=== PATIENT | female | born 1995 | race Caucasian/White ===

== ENCOUNTER 2022-12-28 04:57 | Emergency (ER) | payer SELFPAY ==
[2022-12-28 05:03] VITALS: BP 137/84; PULSE 77; RESP 16; TEMP 37.1; O2SAT 99; BMI 27.2
--- NOTE | 2022-12-28 05:15 | CTR_ITS ---
PROCEDURE INFORMATION: Exam: CT Abdomen And Pelvis With Contrast Exam date and time: 12/28/2022 6:02 AM Age: 27 years old Clinical indication: Abdominal pain; Acute; Additional info: Abd pain hematuria TECHNIQUE: Imaging protocol: Computed tomography of the abdomen and pelvis with contrast. Radiation optimization: All CT scans at this facility use at least one of these dose optimization techniques: automated exposure control; mA and/or kV adjustment per patient size (includes targeted exams where dose is matched to clinical indication); or iterative reconstruction. Contrast material: OMNI 350; Contrast volume: 100 ml; Contrast route: INTRAVENOUS (IV); REPORTING DATA: Count of CT and Cardiac NM exams in prior 12 months: This patient has received 0 known CTs and 0 known cardiac nuclear medicine studies in the 12 months prior to the current study. COMPARISON: No relevant prior studies available. RADIATION DOSE METRICS: Total DLP (mGy-cm): 674.57 FINDINGS: Lungs: The lung bases are clear. Liver: Unremarkable. Gallbladder and bile ducts: No definite gallbladder abnormality by CT. No biliary tree dilation. Pancreas: Unremarkable. Spleen: Unremarkable. Adrenal glands: Unremarkable. Kidneys and ureters: 4 mm left intrarenal calculus. No hydronephrosis of either kidney. No visible ureteral calculus. No significant perinephric fluid or obvious inhomogeneous renal enhancement. Lack of the above findings on CT does not entirely exclude the diagnosis of acute pyelonephritis. Please correlate with clinical and laboratory evaluation. Stomach and bowel: No significant bowel distention. There are no CT findings to strongly suggest diverticulitis. Appendix: The appendix is visualized and appears normal. Intraperitoneal space: No free intraperitoneal air, or generalized ascites. Vasculature: No evidence for abdominal aortic aneurysm. Lymph nodes: No retroperitoneal adenopathy. Urinary bladder: No visible calculus in the urinary bladder. Possibly some mild diffuse urinary bladder wall thickening. While nonspecific, this could indicate evidence for cystitis. Please correlate clinically. Reproductive: Trace amount of cul-de-sac fluid. No definite abnormal ovarian/adnexal cyst or mass by CT. Bones/joints: No significant acute finding. Soft tissues: Very small umbilical hernia, containing only fat. CT/CT abdomen pelvis w con* [id number] IMPRESSION: 1. 4 mm left intrarenal calculus. No hydronephrosis or visible ureteral calculus. 2. No perinephric fluid, see above discussion. 3. Possible mild urinary bladder wall thickening, see above. 4. Normal appendix. 5. No free air or significant bowel distention. 6. Trace amount of cul-de-sac fluid. No definite abnormal ovarian/adnexal cyst or mass by CT. 7. Other findings discussed above.
--- NOTE | 2022-12-28 05:16 | ED_ITS ---
Documented by User: Ernesto Joshua MD 12/28/22 05:19 HPI - Abdominal Pain General: Chief Complaint: Abdominal Pain Stated Complaint: adb pain Time Seen by Provider: 12/28/22 05:00 Source: patient Mode of arrival: ambulatory Limitations: no limitations History of Present Illness: 27-year-old female states that she got this morning went to the bathroom started having severe lower abdominal pain. States it started 2 hours ago her pain is under suprapubic and right lower quadrant but mainly in the suprapubic region. She rates her pain a 9 out of 10 currently states she is urinating some blood denies any vaginal bleeding denies any vaginal discharge her last menstrual pe riod was 1 week ago. No vomiting no diarrhea. Associated Symptoms: Reports dysuria and hematuria; Denies chills, diarrhea, fever(s), nausea and vomiting Related Data: Date of Last Menstrual Period: 12/21/22 Review of Systems Const: Denies: fever(s), chills, body aches or change in appetite Eyes: Denies: eye discomfort ENMT: Denies: throat pain or dental pain Card: Denies: chest pain Resp: Denies: dyspnea GI: Reports: abdominal pain; Denies: nausea, vomiting or diarrhea : Reports: dysuria and hematuria Musc: Denies: neck pain or back pain Skin/Breast: Denies: rash Neuro: Denies: headache(s) Psych: Denies: depression Eduardo/Lymph: Denies: easy bruising All/Imm: Denies: urticaria PFSH ED PFSH: Medical History (Updated 01/05/23 @ 00:01 by ENMANUEL Yang) No pertinent past medical history Social History (Updated 12/28/22 @ 05:17 by Ernesto Joshua MD) Substance/Drug Use: never Female Reproductive History: Date of last menstrual period: 12/21/22 Physical Exam Const: COMMON NORMALS: no acute distress, patient oriented x3 and healthy appearing HENMT: COMMON NORMALS: normocephalic and atraumatic HEAD & SCALP: normocephalic and atraumatic Eye: COMMON NORMALS: conjunctivae normal CONJUNCTIVA: Yes conjunctivae normal Neck/C-Spine: COMMON NORMALS: full ROM and supple Chest: COMMONS NORMALS: normal inspection of the chest and normal palpation of entire chest wall Resp: COMMON NORMALS: normal respiratory effort, No retractions, No use of accessory muscles and clear to auscultation bilaterally AUSCULTATION: clear to auscultation bilaterally Cardio: COMMON NORMALS: regular rate, regular rhythm and No murmurs present (Cardio) RATE: regular rate RHYTHM: regular rhythm GI: COMMON NORMALS: Normal to inspection, nondistended, normoactive bowel sounds present, Soft to palpation and no masses PALPATION: Yes Soft to palpation OTHER: lower abd tenderness Extremity: COMMON NORMALS: normal to inspection and full ROM Neuro: COMMON NORMALS: patient oriented x3, moves all extremities and no focal motor deficits Psych: COMMON NORMALS: mental status grossly normal, Normal thought process present and cooperative THOUGHT PROCESS: Normal thought process present Skin: COMMON NORMALS: no rashes or lesions noted and no wounds GENERAL SKIN EXAM: no rashes or lesions noted Course Vital Signs: Vital signs: Vital Signs Temperature 98.8 F 12/28/22 05:03 Pulse Rate 80 12/28/22 07:33 Respiratory Rate 16 12/28/22 07:33 Blood Pressure 94/49 12/28/22 07:33 Pulse Oximetry 97 12/28/22 07:33 Oxygen Delivery Me thod Room Air 12/28/22 06:30 MDM - Abdominal Pain Lab Data 12/28/22 05:25 12/28/22 05:25 Labs/Radiology: Radiology Impressions Abdomen/Pelvis CT 12/28/22 05:15 IMPRESSION: 1. 4 mm left intrarenal calculus. No hydronephrosis or visible ureteral calculus. 2. No perinephric fluid, see above discussion. 3. Possible mild urinary bladder wall thickening, see above. 4. Normal appendix. 5. No free air or significant bowel distention. 6. Trace amount of cul-de-sac fluid. No definite abnormal ovarian/adnexal cyst or mass by CT. 7. Other findings discussed above. Laboratory Results WBC 20.3 10^3/uL (4.0-10.0) H 12/28/22 05:25 RBC 4.44 10^6/uL (4.1-5.3) 12/28/22 05:25 Hgb 13.2 g/dL (11.5-15.3) 12/28/22 05:25 Hct 40.4 % (37.0-47.0) 12/28/22 05:25 MCV 91.0 fl (81-99) 12/28/22 05:25 MCH 29.7 pg (28.0-34.0) 12/28/22 05:25 MCHC 32.7 g/dL (30.0-36.0) 12/28/22 05:25 RDW 12.5 % (12.1-15.1) 12/28/22 05:25 Plt Count 292 10^3/cmm (130-400) 12/28/22 05:25 MPV 9.2 fL (7.4-10.4) 12/28/22 05:25 Neut % (Auto) 74.7 % 12/28/22 05:25 Lymph % (Auto) 16.2 % 12/28/22 05:25 [place] % (Auto) 8.1 % 12/28/22 05:25 Eos % (Auto) 0.5 % 12/28/22 05:25 Baso % (Auto) 0.2 % 12/28/22 05:25 Neut # (Auto) 15.15 10^3/uL (1.8-7.7) H 12/28/22 05:25 Lymph # (Auto) 3.3 10^3/uL (0.8-4.8) 12/28/22 05:25 Baldwin # (Auto) 1.6 10^3/uL (0.2-0.9) H 12/28/22 05:25 Eos # (Auto) 0.1 10^3/uL (0.0-0.8) 12/28/22 05:25 Baso # (Auto) 0.0 10^3/uL (0.0-0.1) 12/28/22 05:25 Nucleated RBC % (auto) 0 % 12/28/22 05:25 Nucleated RBCs # 0.0 /100WBC 12/28/22 05:25 Sodium 138 mmol/L (136-145) 12/28/22 05:25 Potassium 4.1 mmol/L (3.5-5.1) 12/28/22 05:25 Chloride 101 mmol/L (98-107) 12/28/22 05:25 Carbon Dioxide 23 mmol/L (22-29) 12/28/22 05:25 Anion Gap 18.1 (5-19) 12/28/22 05:25 BUN 8 mg/dL (6-20) 12/28/22 05:25 Creatinine 0.7 mg/dL (0.5-0.9) 12/28/22 05:25 GFR Calculation 98.9 mL/min (90-130) 12/28/22 05:25 Glucose 123 mg/dL (65-115) H 12/28/22 05:25 Calculated Osmolality 286 mOsm/kg (285-295) 12/28/22 05:25 Calcium 9.1 mg/dL (8.5-10.5) 12/28/22 05:25 Total Bilirubin 0.4 mg/dL (0.15-1.2) 12/28/22 05:25 AST 14 U/L (0-32) 12/28/22 05:25 ALT 8 U/L (0-33) 12/28/22 05:25 Alkaline Phosphatase 56 U/L (35-105) 12/28/22 05:25 Total Protein 7.5 g/dL (6.6-8.7) 12/28/22 05:25 Albumin 4.8 g/dL (3.5-5.2) 12/28/22 05:25 Globulin 2.7 g/dL (1.3-4.6) 12/28/22 05:25 Lipase 16 U/L (13-60) 12/28/22 05:25 HCG, Qual Negative (Negative) 12/28/22 05:25 Urine Color Light yellow (Yellow) 12/28/22 05:11 Urine Appearance Cloudy (CLEAR) A 12/28/22 05:11 Urine pH 7 (5-7) 12/28/22 05:11 Ur Specific [place] 1.010 (1.005-1.030) 12/28/22 05:11 Urine Protein 1+ (Negative) H 12/28/22 05:11 Urine Glucose (UA) Norm (Normal) 12/28/22 05:11 Urine Ketones Negative (Negative) 12/28/22 05:11 Urine Blood 3+ (Negative) H 12/28/22 05:11 Urine Nitrate Negative (Negative) 12/28/22 05:11 Urine Bilirubin Neg (Negative) 12/28/22 05:11 Urine Urobilinogen Neg mg/dL (Negative) 12/28/22 05:11 Ur Leukocyte Esterase 2+ (Negative) H 12/28/22 05:11 Urine RBC 40-50 /hpf (0-2) H 12/28/22 05:11 Urine WBC >100 /hpf (0-5) H 12/28/22 05:11 Ur Squamous Epith Cells 0-4 /hpf (0-5) H 12/28/22 05:11 Amorphous Sediment Not Reportable 12/28/22 05:11 Urine Bacteria 2+ /hpf (NONE) H 12/28/22 05:11 Urine Mucus 1+ /hpf 12/28/22 05:11 Discharge Plan Discharge Patient Disposition: Home Clinical Impression: Calculus of kidney, Urinary tract infection Prescriptions: New ciprofloxacin HCl 500 mg tablet 500 mg PO BID Qty: 20 0RF Pyridium 100 mg tablet 100 mg PO Q8H Qty: 6 0RF Discharge Orders: Discharge ED (Routine); Ordered 12/28/22 Ordered By: Rich Jacinto Referrals: Nelly Sy FNP [Primary Care Provider] - 1 week Patient Instructions: Kidney Stones, Kidney Infection (ED) Coding Level of Care Code ED Interventional Physician for g Fwd Documented by User: Rich Jacinto DO 01/08/23 08:07 HPI - Abdominal Pain General: Chief Complaint: Abdominal Pain Stated Complaint: adb pain Time Seen by Provider: 12/28/22 05:00 [facility] ED PFSH: Medical History (Updated 01/05/23 @ 00:01 by ENMANUEL Yang) No pertinent past medical history Social History (Updated 12/28/22 @ 05:17 by Ernesto Joshua MD) Substance/Drug Use: never Course Vital Signs: Vital signs: Vital Signs Temperature 98.8 F 12/28/22 05:03 Pulse Rate 80 12/28/22 07:33 Respiratory Rate 16 12/28/22 07:33 Blood Pressure 94/49 12/28/22 07:33 Pulse Oximetry 97 12/28/22 07:33 Oxygen Delivery Me thod Room Air 12/28/22 06:30 MDM - Abdominal Pain Medical Decision Making Presents to the ER with abdominal pain and cramping rates a 9 out of 10, patient has blood in her urine. Patient's had similar episodes when she had ovarian cyst in the past. Patient is also had a history of kidney stones. Lab work was obtained which showed a white count of 20.3 as well as 3+ blood in her urine and greater than 100 white cells and 2+ leukocyte Estrace. Abdomen pelvis CT was obtained which showed a 4 mm left intrarenal calculus with no hydro-. These findings were discussed with the patient patient will be discharged on antibiotics pain medicine was instructed to follow-up with her PCP and/or urologist within the next 1 week. Medical Records I reviewed the patient's medical records. Lab Data I reviewed the patient's lab results. 12/28/22 05:25 12/28/22 05:25 Labs/Radiology: Radiology Impressions Abdomen/Pelvis CT 12/28/22 05:15 IMPRESSION: 1. 4 mm left intrarenal calculus. No hydronephrosis or visible ureteral calculus. 2. No perinephric fluid, see above discussion. 3. Possible mild urinary bladder wall thickening, see above. 4. Normal appendix. 5. No free air or significant bowel distention. 6. Trace amount of cul-de-sac fluid. No definite abnormal ovarian/adnexal cyst or mass by CT. 7. Other findings discussed above. Laboratory Results WBC 20.3 10^3/uL (4.0-10.0) H 12/28/22 05:25 RBC 4.44 10^6/uL (4.1-5.3) 12/28/22 05:25 Hgb 13.2 g/dL (11.5-15.3) 12/28/22 05:25 Hct 40.4 % (37.0-47.0) 12/28/22 05:25 MCV 91.0 fl (81-99) 12/28/22 05:25 MCH 29.7 pg (28.0-34.0) 12/28/22 05:25 MCHC 32.7 g/dL (30.0-36.0) 12/28/22 05:25 RDW 12.5 % (12.1-15.1) 12/28/22 05:25 Plt Count 292 10^3/cmm (130-400) 12/28/22 05:25 MPV 9.2 fL (7.4-10.4) 12/28/22 05:25 Neut % (Auto) 74.7 % 12/28/22 05:25 Lymph % (Auto) 16.2 % 12/28/22 05:25 Baldwin % (Auto) 8.1 % 12/28/22 05:25 Eos % (Auto) 0.5 % 12/28/22 05:25 Baso % (Auto) 0.2 % 12/28/22 05:25 Neut # (Auto) 15.15 10^3/uL (1.8-7.7) H 12/28/22 05:25 Lymph # (Auto) 3.3 10^3/uL (0.8-4.8) 12/28/22 05:25 [place] # (Auto) 1.6 10^3/uL (0.2-0.9) H 12/28/22 05:25 Eos # (Auto) 0.1 10^3/uL (0.0-0.8) 12/28/22 05:25 Baso # (Auto) 0.0 10^3/uL (0.0-0.1) 12/28/22 05:25 Nucleated RBC % (auto) 0 % 12/28/22 05:25 Nucleated RBCs # 0.0 /100WBC 12/28/22 05:25 Sodium 138 mmol/L (136-145) 12/28/22 05:25 Potassium 4.1 mmol/L (3.5-5.1) 12/28/22 05:25 Chloride 101 mmol/L (98-107) 12/28/22 05:25 Carbon Dioxide 23 mmol/L (22-29) 12/28/22 05:25 Anion Gap 18.1 (5-19) 12/28/22 05:25 BUN 8 mg/dL (6-20) 12/28/22 05:25 Creatinine 0.7 mg/dL (0.5-0.9) 12/28/22 05:25 GFR Calculation 98.9 mL/min (90-130) 12/28/22 05:25 Glucose 123 mg/dL (65-115) H 12/28/22 05:25 Calculated Osmolality 286 mOsm/kg (285-295) 12/28/22 05:25 Calcium 9.1 mg/dL (8.5-10.5) 12/28/22 05:25 Total Bilirubin 0.4 mg/dL (0.15-1.2) 12/28/22 05:25 AST 14 U/L (0-32) 12/28/22 05:25 ALT 8 U/L (0-33) 12/28/22 05:25 Alkaline Phosphatase 56 U/L (35-105) 12/28/22 05:25 Total Protein 7.5 g/dL (6.6-8.7) 12/28/22 05:25 Albumin 4.8 g/dL (3.5-5.2) 12/28/22 05:25 Globulin 2.7 g/dL (1.3-4.6) 12/28/22 05:25 Lipase 16 U/L (13-60) 12/28/22 05:25 HCG, Qual Negative (Negative) 12/28/22 05:25 Urine Color Light yellow (Yellow) 12/28/22 05:11 Urine Appearance Cloudy (CLEAR) A 12/28/22 05:11 Urine pH 7 (5-7) 12/28/22 05:11 Ur Specific [place] 1.010 (1.005-1.030) 12/28/22 05:11 Urine Protein 1+ (Negative) H 12/28/22 05:11 Urine Glucose (UA) Norm (Normal) 12/28/22 05:11 Urine Ketones Negative (Negative) 12/28/22 05:11 Urine Blood 3+ (Negative) H 12/28/22 05:11 Urine Nitrate Negative (Negative) 12/28/22 05:11 Urine Bilirubin Neg (Negative) 12/28/22 05:11 Urine Urobilinogen Neg mg/dL (Negative) 12/28/22 05:11 Ur Leukocyte Esterase 2+ (Negative) H 12/28/22 05:11 Urine RBC 40-50 /hpf (0-2) H 12/28/22 05:11 Urine WBC >100 /hpf (0-5) H 12/28/22 05:11 Ur Squamous Epith Cells 0-4 /hpf (0-5) H 12/28/22 05:11 Amorphous Sediment Not Reportable 12/28/22 05:11 Urine Bacteria 2+ /hpf (NONE) H 12/28/22 05:11 Urine Mucus 1+ /hpf 12/28/22 05:11 Discharge Plan Discharge Patient Disposition: Home Clinical Impression: Calculus of kidney, Urinary tract infection Prescriptions: New ciprofloxacin HCl 500 mg tablet 500 mg PO BID Qty: 20 0RF Pyridium 100 mg tablet 100 mg PO Q8H Qty: 6 0RF Discharge Orders: Discharge ED (Routine); Ordered 12/28/22 Ordered By: Rich Jacinto Referrals: Nelly Sy FNP [Primary Care Provider] - 1 week Patient Instructions: Kidney Stones, Kidney Infection (ED) Coding Level of Care Code ED Interventional Physician for James Hagen
[2022-12-28 05:27] LABS: Add Urine Microscopic? YES; Bilirubin Urine Neg (Negative); Blood Urine 3+ (Negative); Glucose Urine UA Norm (Normal); Ketones Urine Negative (Negative); Leukocyte Esterase Urine 2+ (Negative); Nitrate Urine Negative (Negative); Protein Urine 1+ (Negative); Urine Appearance Cloudy (CLEAR); Urine Color Light yellow (Yellow); Urobilinogen Urine Neg (Negative); pH Urine 7 (5-7)
[2022-12-28 05:28] VITALS: BP 129/70
[2022-12-28 05:28] LABS: Add Urine Culture? Yes; Bacteria Urine 2+ /hpf; Mucus Urine 1+ /hpf; RBC Urine 40-50 /hpf (0-2); Squamous Epithelial Cell Urine 0-4 /hpf (0-5); WBC Urine >100 /hpf (0-5)
[2022-12-28 05:29] VITALS: RESP 18; O2SAT 99
[2022-12-28] MEDS: morphine 4 mg/mL SDV 1 mL IVP (05:29)
[2022-12-28] MEDS: sodium chloride 0.9% 1,000 ML 999 ML IV (05:29)
[2022-12-28 05:30] VITALS: BP 112/66; PULSE 77; RESP 16; O2SAT 99
[2022-12-28] MEDS: ondansetron 2 mg/ML SDV 2 mL 4 MG IVP (05:30)
[2022-12-28 05:32] LABS: Basophils % 0.2 %; Eosinophils # 0.1 10^3/uL (0.0-0.8); Eosinophils % 0.5 %; Hematocrit 40.4 % (37.0-47.0); Hemoglobin 13.2 g/dL (11.5-15.3); Lymphocytes # 3.3 10^3/uL (0.8-4.8); Lymphocytes % 16.2 %; Mean Corpuscular HGB Conc 32.7 g/dL (30.0-36.0); Mean Corpuscular Hemoglobin 29.7 pg (28.0-34.0); Mean Platelet Volume 9.2 fL (7.4-10.4); Monocytes # 1.6 10^3/uL (0.2-0.9); Monocytes % 8.1 %; Neutrophils # 15.15 10^3/uL (1.8-7.7); Neutrophils % 74.7 %; Nucleated Red Blood Cells % 0 %; Platelet Count 292 10^3/cmm (130-400); Red Blood Count 4.44 10^6/uL (4.1-5.3); Red Cell Distribution Width 12.5 % (12.1-15.1); White Blood Count 20.3 10^3/uL (4.0-10.0)
[2022-12-28 05:54] LABS: Alanine Aminotransferase 8 U/L (0-33); Albumin Level 4.8 g/dL (3.5-5.2); Alkaline Phosphatase 56 U/L (35-105); Anion Gap 18.1 (5-19); Aspartate Amino Transferase 14 U/L (0-32); Blood Urea Nitrogen 8 mg/dL (6-20); Calcium 9.1 mg/dL (8.5-10.5); Carbon Dioxide 23 mmol/L (22-29); Chloride 101 mmol/L (98-107); Creatinine Clr Calc Pharmacy 132.5715; Globulin 2.7 g/dL (1.3-4.6); Glomerular Filtration Rate 98.9 mL/min (90-130); Glucose 123 mg/dL (65-115); HCG, Serum Qual Negative (Negative); Lipase 16 U/L (13-60); Osmolality Calculated 286 mOsm/kg (285-295); Potassium 4.1 mmol/L (3.5-5.1); Sodium 138 mmol/L (136-145); Total Bilirubin 0.4 mg/dL (0.15-1.2); Total Protein 7.5 g/dL (6.6-8.7)
[2022-12-28] MEDS: iohexol 350 mg/mL 500 mL Btl (per mL) IV (06:09)
[2022-12-28 06:30] VITALS: BP 94/49; PULSE 80; O2SAT 97
[2022-12-28 07:33] VITALS: BP 94/49; PULSE 80; RESP 16; O2SAT 97
--- NOTE | 2022-12-28 08:47 | DCPLANNER ---
Addendum entered by Tresa Rose 12/30/22 09:44: Patient had a follow up appointment scheduled with urology - patient did not attend appointment. Addendum entered by Tresa Rose 12/28/22 12:59: Patient has a follow up appointment scheduled for , December 29, 2022 at 9:[address] Mary at urology. Original Note: manager er had message to schedule a follow up appointment for patient with urology. manager er sent patients information to the front office staff at urology. Patients information will be printed and reviewed. Clinic will call patient with appointment information.
== END 2022-12-28 07:35 | disposition home or self-care (01) ==
PROVIDERS: Emergency Provider Emergency Medicine; PCP Nurse Practitioner Family
DX: N39.0 Urinary tract infection, site not specified (principal); N20.0 Calculus of kidney
CPT/HCPCS: 74177; 80053; 81001; 83690; 84703; 85025; 87077; 87086; 87186; 96374; 96375; 99285; J2270; J2405; J7030; Q9967